=== PATIENT | female | born 1950 ===

== ENCOUNTER 2017-10-29 12:55 | Emergency (ER) | payer MEDICAID ==
[2017-10-29 13:24] VITALS: RESP 16; TEMP 97; O2SAT 99
--- NOTE | 2017-10-29 13:44 | ED PDOC ---
HPI: General Adult Time Seen by Provider: 10/29/17 13:28 Chief Complaint (Nursing): Back Pain Chief Complaint (Provider): Back, leg and hip pain History Per: Patient History/Exam Limitations: no limitations Onset/Duration Of Symptoms: Days (x 5) Current Symptoms Are (Timing): Still Present Additional Complaint(s): 66 year old female presents to the ED complaining of left side low back pain and left hip, knee and ankle pain s/p trip and fall 5 days ago. Patient did not seek medical attention at time of injury and presents today with persistent pain and now swelling to left leg Aleve has helped the pain somewhat. Pain is currently rated as 7/10. Patient denies dizziness or syncope prior to fall. She states she did hit her head but did not sustain any LOC at time of fall 5 days ago. PMD: none provided Past Medical History Reviewed: Historical Data, Nursing Documentation, Vital Signs Vital Signs: Last Vital Signs Temp 97.0 F L 10/29/17 13:22 Pulse 88 10/29/17 13:22 Resp 16 10/29/17 13:22 BP 163/91 H 10/29/17 13:22 Pulse Ox 99 10/29/17 14:13 - Medical History PMH: HTN, Hyperlipidemia - Surgical History Surgical History: Hernia Repair, Other surgeries: Ectopic - Family History Family History: States: Unknown Family Hx - Social History Current smoker - smoking cessation education provided: No Alcohol: Occasional Drugs: Denies - Home Medications Home Medications: Ambulatory Orders Medication Instructions Recorded Ibuprofen 600 mg PO Q6 #20 tab 01/14/15 Clindamycin [Cleocin] 300 mg PO TID #30 cap 05/30/16 Metoprolol Succinate [Toprol XL] 25 mg PO DAILY 05/30/16 Metoprolol Tartrate [Lopressor] 25 mg PO BID #14 tab 05/30/16 amLODIPine [Norvasc] 5 mg PO DAILY 05/30/16 Cyclobenzaprine [Cyclobenzaprine 10 mg PO TID PRN #20 tab 10/29/17 HCl] Naproxen [Naprosyn] 500 mg PO BID #20 tab 10/29/17 traMADol [Ultram] 50 mg PO TID PRN #15 tab 10/29/17 - Allergies Allergies/Adverse Reactions: Allergies Allergy/AdvReac Type Severity Reaction Status Date / Time No Known Allergies Allergy Verified 11/09/16 16:20 Review of Systems ROS Statement: Except As Marked, All Systems Reviewed And Found Negative Musculoskeletal: Positive for: Back Pain, Leg Pain (left), Other (Left hip pain) Physical Exam - Reviewed Nursing Documentation Reviewed: Yes Vital Signs Reviewed: Yes - Physical Exam Appears: Positive for: Well, Non-toxic, No Acute Distress Head Exam: Positive for: ATRAUMATIC, NORMAL INSPECTION, NORMOCEPHALIC Skin: Positive for: Normal Color. Negative for: Rash Eye Exam: Positive for: EOMI, Normal appearance, PERRL Neck: Positive for: Normal, Painless ROM, Supple Pulses-Dorsalis Pedis (L): 2+ Pulses-Dorsalis Pedis (R): 2+ Back: Positive for: Other (tenderness to left lower lumbar region) Extremity: Positive for: Tenderness (at left lateral hip, knee and ankle), Capillary Refill (2+ ), Swelling (diffuse swelling in left lower extremity) Neurologic/Psych: Positive for: Alert, Oriented - ECG O2 Sat by Pulse Oximetry: 99 (RA) Pulse Ox Interpretation: Normal - Other Rad LS Spine, left ankle, knee, hip and pelvis x-rays X-Ray: Interpreted by Me, Viewed By Me X-Ray Interpretation: STS, no fx, no dis Duplex right leg X-Ray: Read By Radiologist X-Ray Interpretation: no DVT, bakers cyst Medical Decision Making Medical Decision Making: Time: 13:34 Impression: 66 year old female with back, hip and leg pain Initial Plan: --Flexeril 10 mg PO --Toradol 30 mg IM --Tramadol 50 mg PO --X-ray left ankle --X-ray left foot --X-ray left hip with pelvis --X-ray left knee --LS Spine AP/Lat --US Duplex lower extremity Patient made aware of all diagnostic testing results. She reports improvement to pain after meds given. All questions answered. Knee immobilizer and air cast applied to left leg. Patient was instructed to follow-up with orthopedist or PMD for any persistent symptoms. Scribe Attestation: Documented by Lynn Hodgson, acting as a scribe for Jayna Crawley PA-C Provider Scribe Attestation: All medical record entries made by the Scribe were at my direction and personally dictated by me. I have reviewed the chart and agree that the record accurately reflects my personal performance of the history, physical exam, medical decision making, and the department course for this patient. I have also personally directed, reviewed, and agree with the discharge instructions and disposition. Procedures - Splinting Location: left leg Pre-Made Type: knee immobilizer and aircast Pre-Proc Neuro Vasc Exam: normal Post-Proc Neuro Vasc Exam: normal Disposition - Clinical Impression Clinical Impression: Back strain, Hip strain, Knee sprain, Ankle sprain - Patient ED Disposition Is Patient to be Admitted: No Counseled Patient/Family Regarding: Studies Performed, Diagnosis, Need For Followup, Rx Given - Disposition Referrals: Eduard Brewer III, MD [Staff Provider] - Disposition: Routine/Home Disposition Time: 16:01 Condition: STABLE Additional Instructions: Rest, ice and elevate affected areas. Take prescription meds as directed as needed for pain. Follow-up with primary doctor or orthopedist for any persistent symptoms. Prescriptions: Cyclobenzaprine [Cyclobenzaprine HCl] 10 mg PO TID PRN #20 tab PRN Reason: Muscle Spasm Naproxen [Naprosyn] 500 mg PO BID #20 tab traMADol [Ultram] 50 mg PO TID PRN #15 tab PRN Reason: Pain, Moderate (4-7) Instructions: Knee Sprain (DC), Hip Pain, Ankle Sprain, Low Back Pain (DC) Forms: [facility] (Romansh)
--- NOTE | 2017-10-29 16:16 | US ---
HISTORY: swelling to leg s/p trauma . PRIORS: None. FINDINGS: 2-D, color and duplex Doppler analysis of the lower extremity venous circulation using routine protocol from the femoral veins through the popliteal veins. Venous compressibility: Normal. Flow and augmentation patterns: Normal. Visualized veins upper third of calf: Normal. Gamble cyst: 4.1 x 4.2 x 1.6 cm, mildly complex. IMPRESSION: No sonographic or Doppler evidence for DVT in left lower extremity. 4.2 cm popliteal cyst identified incidentally.
[2017-10-29 16:41] VITALS: BP 157/93; PULSE 73
--- NOTE | 2017-10-29 17:55 | RAD ---
PROCEDURE: Left Hip with Pelvis X-ray Radiographs. HISTORY: trauma COMPARISON: None. FINDINGS: BONES: No acute fracture or destructive bony lesion identified. JOINTS: Degenerative changes are seen the bilateral sacroiliac and hip joints symmetrically. No dislocation or subluxation. Pubic symphysis appears intact. SOFT TISSUES: Normal. OTHER FINDINGS: None. IMPRESSION: No acute fracture or dislocation left hip joint. Pelvic ring appears intact although bilateral sacroiliac and hip joint degenerative changes are identified.
--- NOTE | 2017-10-29 17:57 | RAD ---
PROCEDURE: Left Knee Radiographs. HISTORY: Pain. COMPARISON: None. FINDINGS: BONES: No acute fracture or destructive bony lesion identified. JOINTS: No dislocation. Marked medial compartment joint space narrowing seen with articular sclerosis and limited osteophyte formation compatible with osteoarthritis. JOINT EFFUSION: None. OTHER FINDINGS: None. IMPRESSION: Advanced osteoarthritis. No acute fracture or dislocation.
--- NOTE | 2017-10-29 17:58 | RAD ---
PROCEDURE: Radiographs of the Lumbar Spine. HISTORY: trauma COMPARISON: No prior. FINDINGS: BONES: Normal curvature. No displaced fracture or spondylolisthesis. No destructive bony lesion apparent. DISC SPACES: Disc height loss at L4-5 indicates mild degenerative disc disease with limited multilevel spondylosis appreciated. OTHER FINDINGS: None. IMPRESSION: No acute fracture or spondylolisthesis. Multilevel degenerative disc disease as discussed above.
--- NOTE | 2017-10-29 17:59 | RAD ---
PROCEDURE: Left Ankle Radiographs. HISTORY: trauma COMPARISON: None FINDINGS: BONES: No acute fracture or destructive bony lesion identified. Diffuse osteopenia suggests osteoporosis. JOINTS: No osteoarthritis. Ankle mortise maintained. Talar dome intact SOFT TISSUES: Soft tissue edema is seen in the anterior medial and lateral ankle soft tissues subcutaneously. OTHER FINDINGS: Large plantar calcaneal spur noted. IMPRESSION: No acute fracture or dislocation. Soft tissue edema is identified as discussed above.
--- NOTE | 2017-10-29 18:01 | RAD ---
PROCEDURE: Left Foot Radiographs. HISTORY: trauma COMPARISON: None. FINDINGS: BONES: No acute fracture or destructive bony lesion identified. JOINTS: Gross hallux valgus deformity. Degenerative changes seen diffusely throughout the foot with limited sparing of the 2nd through 5th metatarsophalangeal joints. SOFT TISSUES: A large calcaneal spur is identified. OTHER FINDINGS: None. IMPRESSION: No acute fracture or dislocation identified. Gross hallux valgus deformity. Diffuse degenerative changes are seen as well as a large plantar calcaneal spur.
== END 2017-10-29 16:38 | disposition home or self-care (01) ==
LOC: H.ER 12:55
DX: S39.012A Strain of muscle, fascia and tendon of lower back, initial encounter (principal); S83.92XA Sprain of unspecified site of left knee, initial encounter; S93.402A Sprain of unspecified ligament of left ankle, initial encounter; S76.012A Strain of muscle, fascia and tendon of left hip, initial encounter; W19.XXXA Unspecified fall, initial encounter; I10 Essential (primary) hypertension; E78.5 Hyperlipidemia, unspecified
CPT/HCPCS: 72100; 73502; 73562; 73610; 73630; 93971; 96372; 99284; J1885

== ENCOUNTER 2018-07-26 22:21 | Emergency (ER) | payer MEDICAID, OTHER ==
[2018-07-26] MEDS ORDERED: Morphine 4 MG/ML VIAL ONE (23:35)
--- NOTE | 2018-07-26 23:50 | ED PDOC ---
Lower Extremity Pain/Injury Time Seen by Provider: 07/26/18 22:47 Chief Complaint (Nursing): Lower Extremity Problem/Injury Chief Complaint (Provider): Lower Extremity Problem/Injury History Per: Patient History/Exam Limitations: no limitations Onset/Duration Of Symptoms: Days (x7) Additional Complaint(s): 67 years old female with history of hypertension and possible arthritis presents to ER for evaluation of right lower extremity pain from distal calf radiating to ankle and to foot onset one week. Patient reports she woke up this morning unable to put pressure on it and noticed swelling this evening. She denies trauma but she states she possibly hit her foot against foot board in the middle of the night. Patient admits to cold symptoms and denies any chest pain or shortness of breath. PMD: non provided Past Medical History Reviewed: Historical Data, Nursing Documentation, Vital Signs Vital Signs: Last Vital Signs Temp 98.8 F 07/26/18 22:42 Pulse 79 07/26/18 22:42 Resp 20 07/26/18 22:42 BP 171/87 H 07/26/18 22:42 Pulse Ox 96 07/26/18 22:42 - Medical History PMH: Arthritis (Gout), HTN, Hyperlipidemia - Surgical History Surgical History: Hernia Repair, - Family History Family History: States: Unknown Family Hx - Social History Current smoker - smoking cessation education provided: Yes Alcohol: Social Drugs: Denies - Home Medications Home Medications: Ambulatory Orders Medication Instructions Recorded Ibuprofen 600 mg PO Q6 #20 tab 01/14/15 Clindamycin [Cleocin] 300 mg PO TID #30 cap 05/30/16 Metoprolol Succinate XL [Toprol XL] 25 mg PO DAILY 05/30/16 Metoprolol Tartrate [Lopressor] 25 mg PO BID #14 tab 05/30/16 amLODIPine [Norvasc] 5 mg PO DAILY 05/30/16 Cyclobenzaprine [Cyclobenzaprine 10 mg PO TID PRN #20 tab 10/29/17 HCl] Naproxen [Naprosyn] 500 mg PO BID #20 tab 10/29/17 traMADol [Ultram] 50 mg PO TID PRN #15 tab 10/29/17 traMADol [Ultram] 50 mg PO Q8 #10 tab 07/27/18 - Allergies Allergies/Adverse Reactions: Allergies Allergy/AdvReac Type Severity Reaction Status Date / Time No Known Allergies Allergy Verified 07/14/16 16:20 Review of Systems ROS Statement: Except As Marked, All Systems Reviewed And Found Negative Cardiovascular: Negative for: Chest Pain Respiratory: Negative for: Shortness of Breath Musculoskeletal: Positive for: Leg Pain (Right with swelling), Foot Pain (Right with swelling) Physical Exam - Reviewed Nursing Documentation Reviewed: Yes Vital Signs Reviewed: Yes - Physical Exam Appears: Positive for: Non-toxic, No Acute Distress Head Exam: Positive for: ATRAUMATIC, NORMOCEPHALIC Skin: Positive for: Normal Color, Warm, Dry Eye Exam: Positive for: Normal appearance, EOMI, PERRL Neck: Positive for: Normal, Painless ROM, Supple Cardiovascular/Chest: Positive for: Regular Rate, Rhythm. Negative for: Murmur Respiratory: Positive for: Normal Breath Sounds. Negative for: Wheezing Pulses-Dorsalis Pedis (L): 2+ Pulses-Dorsalis Pedis (R): 2+ Gastrointestinal/Abdominal: Positive for: Normal Exam, Soft. Negative for: Tenderness Back: Positive for: Normal Inspection. Negative for: L CVA Tenderness, R CVA Tenderness Extremity: Positive for: Tenderness (of right mid foot and bottom of foot), Other (Unable to flex or extend right foot secondary to pain. Warm to touch. No erythema.). Negative for: Calf Tenderness (swelling or erythema to right lower extremity) Neurologic/Psych: Positive for: Alert, Oriented (x3) - Laboratory Results Result Diagrams: 07/26/18 23:40 07/26/18 23:40 - ECG O2 Sat by Pulse Oximetry: 96 (RA) Pulse Ox Interpretation: Normal Medical Decision Making Medical Decision Making: Time: 2325 A/P: 67 years old female presents with foot pain --Normal vitals --Patient has swelling of foot and tenderness --Possible arthritis vs. gout, pathalogical fracture --BMP --CBC --CRP --Erythrocyte Sedimentation rate --Morphine 2 mg IVP --Percocet 5/325 mg 1 tap PO --Toradol 30 mg IVP --Right ankle x-ray --Right foot x-ray --Right duplex lower extremity vein US 0431 Right duplex lower extremity vein US Findings: Real-time ultrasound images of the deep venous system with Doppler evaluation. Normal compression, spontaneity and augmentation. Normal color Doppler. No intraluminal thrombus is seen. IMPRESSION: No evidence of deep venous thrombosis. 0532 Right foot x-ray Findings: Mild hallux valgus deformity. Mild hammertoe deformities of the second through fifth toes. Acute oblique mildly displaced fracture of the tip of the proximal pharynx of the fifth toe. Overlying soft tissue edema and swelling. There is calcaneal spur formation. There is enthesophyte formation at the calcaneal insertion of the Achilles' tendon. Normal visualized distal tibia and medial malleolus. Normal visualized distal fibula and lateral malleolus. Normal tibiotalar articulation and ankle mortise. Normal visualized talus. The visualized subtalar, talonavicular, calcaneocuboid and tarsal articulations are normal. Impression: Acute fracture in the proximal phalanx of the fifth toe. 0533 Right ankle x-ray Findings: There is calcaneal spur formation. There is enthesophyte formation at the calcaneal insertion of the Achilles' tendon. Normal visualized distal tibia and medial malleolus. Normal visualized distal fibula and lateral malleolus. Normal tibiotalar articulation and ankle mortise. Normal visualized talus. The visualized subtalar, talonavicular, calcaneocuboid and tarsal articulations are normal. Impression: No radiographic evidence of an acute pathology. [address] Galan, pending podiatry consult. Scribe Attestation: Documented by Natalia Lemon, acting as a scribe for Malvin Mark MD. Provider Scribe Attestation: All medical record entries made by the Scribe were at my direction and personally dictated by me. I have reviewed the chart and agree that the record accurately reflects my personal performance of the history, physical exam, medical decision making, and the department course for this patient. I have also personally directed, reviewed, and agree with the discharge instructions and disposition. Disposition - Clinical Impression Clinical Impression: Foot fracture - Disposition Referrals: Bk Muhammad DPM [Staff Provider] - Disposition: Transfer of Care Disposition Time: 07:00 Condition: FAIR Prescriptions: traMADol [Ultram] 50 mg PO Q8 #10 tab Instructions: Foot Fracture (DC) Forms: [facility] (Kinyarwanda) Patient Signed Over To: Phuc Galan Handoff Comments: pending podiatry consult
[2018-07-26] MEDS ORDERED: Oxycodone/Acetaminophen 5/325 mg Tab PO STA (23:52)
[2018-07-27 00:10] LABS: BASO # 0.1 K/uL (0.0-0.2); BASO % 0.8 % (0.0-2.0); EOS % 0.3 % (0.0-4.0); HEMOGLOBIN 10.5 g/dL (12.0-16.0); LYMPH % 12.4 % (20.0-40.0); MEAN CELL VOLUME 101.2 fl (81.0-99.0); MEAN CORPUSCULAR HEMOGLOBIN 32.3 pg (27.0-31.0); MEAN CORPUSCULAR HGB CONC 31.9 g/dL (33.0-37.0); MONO # 0.7 K/uL (0.0-0.8); MONO % 8.7 % (0.0-10.0); NEUT # 6.5 K/uL (1.8-7.0); NEUT % 77.8 % (50.0-75.0); RBC 3.26 Mil/uL (3.80-5.20); RED CELL DISTRIBUTION WIDTH 15.4 % (11.5-14.5); WHITE BLOOD COUNT 8.3 K/uL (4.8-10.8)
[2018-07-27 00:13] LABS: BLOOD UREA NITROGEN 18 mg/dl (7-17); CALCIUM 9.3 mg/dL (8.4-10.2); GFR NON-AFRICAN AMERICAN > 60
[2018-07-27] MEDS ORDERED: Oxycodone/Acetaminophen 5/325 mg Tab PO STA (07:26)
[2018-07-27] MEDS ORDERED: Oxycodone/Acetaminophen 5/325 mg Tab ONE (07:32)
--- NOTE | 2018-07-27 07:37 | ED PDOC ---
- Laboratory Results Result Diagrams: 07/26/18 23:40 07/26/18 23:40 - ECG O2 Sat by Pulse Oximetry: 96 (RA) - Progress Re-evaluation Time: 09:45 Condition: Improved (Pt able to move toes after local anesthetic administerd for measurement of compartments. Pressures found to be elevated, explained need for admission as possibility of loss of limb possible to to neurovascular compromise. Pt understands but wishes to go home. Pt instructed re signs and sxs of compartement syndome and understands to return immediately if she develops worsenung pain, numbness or inablity to move toes.) Medical Decision Making Medical Decision Makin Case endorsed to me by Dr. Mark pending podiatry consult. Scribe Attestation: Documented by Eber Rivera, acting as a scribe for Phuc Galan MD. Provider Scribe Attestation: All medical record entries made by the Scribe were at my direction and personally dictated by me. I have reviewed the chart and agree that the record accurately reflects my personal performance of the history, physical exam, medical decision making, and the department course for this patient. I have also personally directed, reviewed, and agree with the discharge instructions and disposition. Disposition - Clinical Impression Clinical Impression: Foot fracture - POA Present On Arrival: None - Disposition Referrals: Bk Muhammad DPM [Staff Provider] - Disposition: Routine/Home Disposition Time: 09:44 Condition: FAIR Prescriptions: traMADol [Ultram] 50 mg PO Q8 #10 tab Instructions: Foot Fracture (DC) Forms: [facility] ([place])
[2018-07-27] MEDS ORDERED: Lidocaine 2% Inj (20ml) IJ ONE (08:20)
--- NOTE | 2018-07-27 08:25 | CP.PCM.CON ---
History of Present Illness - History of Present Illness History of Present Illness: Podiatry consult note for Dr. Muhammad, 67 years old female with history of hypertension and possible arthritis presents was seen in the ED for evaluation of right lower extremity pain from ankle joint to the tips of the toes for one week. Patient states she hit her foot against the bedpost four days ago, however does not remember any other trauma. Pain and swelling have increasingly been getting worse. Patient denies seeing any other doctor regarding this. Patient states three years ago she had a fifth toe fracture, and had seen a fish culturist then. Does not recall the name of the fish culturist. Patient denies icing or elevating the area. States she is unable to move her foot at all. States she was given percocet and that has helped with her pain. Denies f/n/v/sob. allergies: denies surgical history: denies social history: smokes 1-2 cigarettes a day, drinks alcohol occasionaly, denies any other recreational drugs. Past Patient History - Past Social History Alcohol: Social Drugs: Denies - CARDIAC Hx Hypertension: Yes - MUSCULOSKELETAL/RHEUMATOLOGICAL Hx Arthritis: Yes (Gout) - PSYCHIATRIC Hx Anxiety: Yes - SURGICAL HISTORY Hx Surgeries: Yes Hx Section: Yes Hx Herniorrhaphy: Yes - ANESTHESIA Hx Anesthesia: Yes Hx Anesthesia Reactions: No Meds Home Medications: Home Medication List Medication Instructions Recorded Confirmed Type traMADol [Ultram] 50 mg PO Q8 #10 tab 07/27/18 Rx Allergies/Adverse Reactions: Allergies Allergy/AdvReac Type Severity Reaction Status Date / Time No Known Allergies Allergy Verified 07/14/16 16:20 - Medications Medications: Current Medications Lidocaine HCl (Lidocaine 2% 20ml Vial) 20 ml IJ ONCE ONE Stop: 07/27/18 08:21 Physical Exam - Constitutional Appears: Well, Non-toxic - Head Exam Head Exam: ATRAUMATIC - Extremities Exam Additional comments: Right lower extremity exam: vascular: DP nonpalpable(biphasic with the use of doppler), PT 1/4, CFT <3 secs x 5, TG warm to warm ( warmer on the dorsum of the foot), edema noted on the right foot, erythema noted on the right foot derm: no IDM, no open lesions, edema and erythema noted on the dorsum of the foot, no clinical signs of infection, ecchymosis noted on the dorsal distal aspect of the metatarsals. - Neurological Exam Neurological exam: Alert, Oriented x3 - Skin Skin Exam: Erythema Results - Vital Signs Recent Vital Signs: Last Vital Signs Temp 98.8 F 07/26/18 22:42 Pulse 79 07/26/18 22:42 Resp 20 07/26/18 22:42 BP 171/87 H 07/26/18 22:42 Pulse Ox 96 07/27/18 07:37 - Labs Result Diagrams: 07/26/18 23:40 07/26/18 23:40 Labs: Laboratory Results - last 24 hr 07/26/18 07/26/18 23:40 23:40 WBC 8.3 RBC 3.26 L Hgb 10.5 L D Hct 33.0 L MCV 101.2 H D MCH 32.3 H MCHC 31.9 L RDW 15.4 H Plt Count 327 D MPV 9.0 Neut % (Auto) 77.8 H Lymph % (Auto) 12.4 L [place] % (Auto) 8.7 Eos % (Auto) 0.3 Baso % (Auto) 0.8 Neut # (Auto) 6.5 Lymph # (Auto) 1.0 [place] # (Auto) 0.7 Eos # (Auto) 0.0 Baso # (Auto) 0.1 ESR 101 H Sodium 140 Potassium 4.0 Chloride 106 Carbon Dioxide 27 Anion Gap 11 BUN 18 H Creatinine 0.7 Est GFR ( Amer) > 60 Est GFR (Non-Af Amer) > 60 Random Glucose 122 H Calcium 9.3 Assessment & Plan - Assessment and Plan (Free Text) Assessment: 67 yo female seen at bedside in the ED with right fifth proximal phalanx with swelling and erythema; possible compartment syndrome Plan: Patient seen and evaluated Chart, labs and vitals reviewed; absent leukocytosis afebrile Patient educated on the possible etiology of compartment syndrome Patient educated on the importance of checking compartment pressure After careful explanation of alternatives, side effects patient opts to have her compartment pressure of the foot checked area was cleansed with betadine and 6 cc of 2% lidocaine was injected in the dorsal anterior aspect of the ankle. Sterile mary catheter was utilized and three different areas were measured from the dorsal central compartment in the midfoot; 52, 49 and 33. Patient advised to be admitted to monitor the foot; patient refused to be admitted, states she will come back if the pain worsens Patient advised to see Dr. Muhammad on Tuesday morning in his office Patient advised to rest, ice and elevate Wbat, foot dressed with gauze and kerlix, anel and surgical shoe dispensed. Thank you for the consult.
[2018-07-27] MEDS ORDERED: Lidocaine PF 2% (5 ml) Inj (For Cardiac Arrhy) ONE (08:30)
--- NOTE | 2018-07-27 10:15 | US ---
Date of service: 07/27/2018 PROCEDURE: Right lower extremity venous duplex Doppler. HISTORY: r/o DVT COMPARISON: None available. TECHNIQUE: Common femoral, superficial femoral, popliteal and posterior tibial veins were evaluated. Flow was assessed with color Doppler, compressibility, assessment of phasic flow and augmentation response. FINDINGS: COMMON FEMORAL VEIN: Unremarkable. SUPERFICIAL FEMORAL VEIN: Unremarkable. POPLITEAL VEIN: Unremarkable. POSTERIOR TIBIAL VEIN: Unremarkable. OTHER FINDINGS: None. IMPRESSION: No evidence of deep venous thrombosis in the right lower extremity.
[2018-07-27 10:25] VITALS: RESP 17; TEMP 98
[2018-07-27 10:32] VITALS: BP 141/70; PULSE 71
--- NOTE | 2018-07-27 12:34 | RAD ---
Date of service: 07/26/2018 PROCEDURE: Right Foot Radiographs. HISTORY: atraumatic pain, swelling COMPARISON: None. FINDINGS: BONES: Fracture proximal phalanx 5th digit. Shankar remarked JOINTS: Normal. SOFT TISSUES: Normal. OTHER FINDINGS: None. IMPRESSION: Acute fracture 5th digit. Concordant findings (preliminary report) provided by HUSAM HARRIS.
--- NOTE | 2018-07-27 12:35 | RAD ---
Date of service: 07/26/2018 PROCEDURE: Right Ankle Radiographs. HISTORY: atraumatic pain, swelling COMPARISON: None available. FINDINGS: BONES: No visible fractures. Incidental finding: Plantar and Achilles Tendon insertion calcaneal spurs. JOINTS: Normal. No osteoarthritis. Ankle mortise maintained. Talar dome intact SOFT TISSUES: Normal. OTHER FINDINGS: None. IMPRESSION: No acute findings related to/accounting for the clinical presentation. Concordant findings (preliminary report) provided by HUSAM HARRIS.
[2018-07-27 20:00] VITALS: O2SAT 96
== END 2018-07-27 10:20 | disposition home or self-care (01) ==
LOC: H.ER 22:21
DX: S92.511A Displaced fracture of proximal phalanx of right lesser toe(s), initial encounter for closed fracture (principal); F17.210 Nicotine dependence, cigarettes, uncomplicated; I10 Essential (primary) hypertension; M77.31 Calcaneal spur, right foot; M10.9 Gout, unspecified
CPT/HCPCS: 73610; 73630; 80048; 82553; 85025; 85651; 86140; 93971; 96374; 99284; J1885

== ENCOUNTER 2019-01-04 12:13 | Emergency (ER) | payer MEDICARE ==
[2019-01-04 12:23] VITALS: O2SAT 98; BMI 29.5
--- NOTE | 2019-01-04 13:07 | ED PDOC ---
Lower Extremity Pain/Injury Time Seen by Provider: 01/04/19 12:33 Chief Complaint (Nursing): Lower Extremity Problem/Injury Chief Complaint (Provider): Left knee pain History Per: Patient History/Exam Limitations: no limitations Onset/Duration Of Symptoms: Days (5) Current Symptoms Are (Timing): Still Present Additional History Per: Patient Additional Complaint(s): 68yo female, with history of hypertension (non-compliant with medication), comes to ER reporting sudden onset swelling and pain of left knee x 5 days. Patient denies any trauma, fall or direct injury to the site. She also denies any fever, chills, weakness or numbness. Patient has been taking Aleve with no relief of pain. PMD: None Past Medical History Reviewed: Historical Data, Nursing Documentation, Vital Signs Vital Signs: Last Vital Signs Temp 98.1 F 01/04/19 12:22 Pulse 85 01/04/19 12:22 Resp 20 01/04/19 12:22 BP 150/88 01/04/19 12:22 Pulse Ox 98 01/04/19 12:22 Primary Care Provider: Doctor,Robel - Medical History PMH: Anxiety, Arthritis (Gout), HTN, Hyperlipidemia - Surgical History Surgical History: Hernia Repair, - Family History Family History: States: Unknown Family Hx - Home Medications Home Medications: Ambulatory Orders Medication Instructions Recorded Metoprolol Succinate XL [Toprol XL] 25 mg PO DAILY 05/30/16 amLODIPine [Norvasc] 5 mg PO DAILY 05/30/16 Acetaminophen with Codeine 1 tab PO Q6H PRN #10 tab 01/04/19 [Tylenol with Codeine No. 3 300 mg-30 mg] Ibuprofen [Motrin] 600 mg PO Q6H PRN #20 tab 01/04/19 Metoprolol Succinate XL [Toprol XL] 25 mg PO DAILY #10 tab 01/04/19 amLODIPine [Norvasc] 10 mg PO DAILY #10 tab 01/04/19 - Allergies Allergies/Adverse Reactions: Allergies Allergy/AdvReac Type Severity Reaction Status Date / Time No Known Allergies Allergy Verified 01/04/19 12:21 Review of Systems ROS Statement: Except As Marked, All Systems Reviewed And Found Negative Constitutional: Negative for: Fever, Chills Cardiovascular: Negative for: Chest Pain Musculoskeletal: Positive for: Other (left knee pain) Neurological: Negative for: Weakness, Numbness Physical Exam - Reviewed Nursing Documentation Reviewed: Yes Vital Signs Reviewed: Yes - Physical Exam Appears: Positive for: Non-toxic Head Exam: Positive for: ATRAUMATIC, NORMAL INSPECTION, NORMOCEPHALIC Skin: Positive for: Normal Color Eye Exam: Positive for: Normal appearance Neck: Positive for: Supple Cardiovascular/Chest: Positive for: Regular Rate, Rhythm. Negative for: Tachy cardia Respiratory: Positive for: Normal Breath Sounds. Negative for: Respiratory Distress Extremity: Positive for: Tenderness (tenderness to anterior left knee), Swelling (edema to left knee). Negative for: Normal ROM (unable to assess ROM of left knee due to pain), Deformity Neurological/Psych: Positive for: Awake, Alert, Normal Tone - Laboratory Results Result Diagrams: 01/04/19 13:20 01/04/19 13:20 - ECG O2 Sat by Pulse Oximetry: 98 (RA) Pulse Ox Interpretation: Normal Medical Decision Making Medical Decision Making: Impression: Left knee pain Plan: -- Labs -- XR left knee -- Morphine 2mg IV -- Norvasc 5mg PO 1420 XR Left knee FINDINGS: BONES: No acute fracture or destructive bony lesion identified. JOINTS: No subluxation or dislocation, however, there is marked joint space narrowing and articular cortical sclerosis identified at the medial femorotibial compartment, moderate at the patellofemoral articulation and mild at the lateral femorotibial compartment. Limited osteophyte formation is seen at the medial and patellofemoral compartments compatible with osteoarthritis. JOINT EFFUSION: Moderate suprasellar bursa effusion identified. OTHER FINDINGS: None. IMPRESSION: No acute fracture or dislocation left knee. Moderate suprapatellar bursa effusion. Advanced osteoarthritis. 1454 Patient with improvement of pain. Discussed with patient XR findings including arthritis, informed to follow up with orthopedist. Patient stable for discharge home, informed to take medications as prescribed. Patient also informed to follow at [facility] for hypertension management. ScribeAttestation: Documented byKiana Zamorano acting as a scribe for Kassidy Garcia MD. Provider ScribeAttestation: All medical record entries made by the Scribe were at my direction and personally dictated by me. I have reviewed the chart and agree that the record accurately reflects my personal performance of the history, physical exam, medical decision making, and the department course for this patient. I have also personally directed, reviewed, and agree with the discharge instructions and disposition. Disposition - Clinical Impression Clinical Impression: Osteoarthritis, Effusion of bursa of knee - Disposition Referrals: [facility] [Outside] Eduard Brewer III, MD [Staff Provider] - Disposition: Routine/Home Disposition Time: 14:55 Condition: STABLE Prescriptions: Acetaminophen with Codeine [Tylenol with Codeine No. 3 300 mg-30 mg] 1 tab PO Q6H PRN #10 tab PRN Reason: Pain, Severe (8-10) amLODIPine [Norvasc] 10 mg PO DAILY #10 tab Ibuprofen [Motrin] 600 mg PO Q6H PRN #20 tab PRN Reason: Pain, Moderate (4-7) Metoprolol Succinate XL [Toprol XL] 25 mg PO DAILY #10 tab Instructions: Osteoarthritis, Bursitis, Opioids for Short-Term Treatment of Pain Forms: [employer] (Chinese)
[2019-01-04 13:48] LABS: PROTHROMBIN TIME 11.4 Seconds (9.8-13.1)
[2019-01-04 13:50] LABS: PARTIAL THROMBOPLASTIN TIME 28.7 Seconds (25.6-37.1)
[2019-01-04 14:07] LABS: ALB/GLOB RATIO 1.2 (1.0-2.1); ALT/SGPT 26 U/L (9-52); AST/SGOT 44 U/L (14-36); BLOOD UREA NITROGEN 28 mg/dl (7-17); CALCIUM 8.9 mg/dL (8.4-10.2); GFR NON-AFRICAN AMERICAN > 60
[2019-01-04 14:10] LABS: BASO # 0.1 K/uL (0.0-0.2); BASO % 1.3 % (0.0-2.0); EOS % 0.7 % (0.0-4.0); HEMOGLOBIN 11.4 g/dL (12.0-16.0); LYMPH % 18.5 % (20.0-40.0); MEAN CELL VOLUME 96.8 fl (81.0-99.0); MEAN CORPUSCULAR HEMOGLOBIN 31.6 pg (27.0-31.0); MEAN CORPUSCULAR HGB CONC 32.7 g/dL (33.0-37.0); MEAN PLATELET VOLUME 8.5 fl (7.2-11.7); MONO # 0.5 K/uL (0.0-0.8); MONO % 9.4 % (0.0-10.0); NEUT # 3.9 K/uL (1.8-7.0); NEUT % 70.1 % (50.0-75.0); RBC 3.61 Mil/uL (3.80-5.20); RED CELL DISTRIBUTION WIDTH 16.9 % (11.5-14.5); WHITE BLOOD COUNT 5.6 K/uL (4.8-10.8)
--- NOTE | 2019-01-04 14:11 | RAD ---
Date of service: 01/04/2019 PROCEDURE: Left Knee Radiographs. HISTORY: Pain. COMPARISON: None. TECHNIQUE: 2 views obtained. FINDINGS: BONES: No acute fracture or destructive bony lesion identified. JOINTS: No subluxation or dislocation, however, there is marked joint space narrowing and articular cortical sclerosis identified at the medial femorotibial compartment, moderate at the patellofemoral articulation and mild at the lateral femorotibial compartment. Limited osteophyte formation is seen at the medial and patellofemoral compartments compatible with osteoarthritis. JOINT EFFUSION: Moderate suprasellar bursa effusion identified. OTHER FINDINGS: None. IMPRESSION: No acute fracture or dislocation left knee. Moderate suprapatellar bursa effusion. Advanced osteoarthritis.
[2019-01-04 15:12] VITALS: BP 146/80; PULSE 71; RESP 19; TEMP 97.6
== END 2019-01-04 15:22 | disposition home or self-care (01) ==
LOC: H.ER 12:13
DX: M25.462 Effusion, left knee (principal); I10 Essential (primary) hypertension; M19.90 Unspecified osteoarthritis, unspecified site; Z79.899 Other long term (current) drug therapy; M10.9 Gout, unspecified; E78.5 Hyperlipidemia, unspecified
CPT/HCPCS: 73562; 80053; 85025; 85610; 85730; 96374; 99283; J2270